=== PATIENT | male | born 1945 | race Caucasian/White ===

== ENCOUNTER 2022-09-20 13:33 | Outpatient (CLI) | payer MEDICARE ==
[2022-09-20 14:37] LABS: Hemoglobin 12.9 g/dL (13.5-17.5); Mean Corpuscular HGB CONC 32.6 g/dL (32.0-36.0); Mean Platelet Volume 11.3 fl (7.4-10.4); Platelet Count 141 10x3/uL (150-450); RBC Distribution Width 13.3 % (11.5-14.5); Red Blood Cell (RBC) Count 4.45 10x6/uL (4.32-5.72); White Blood Cell (WBC) Count 17.4 10x3/uL (3.5-10.5)
[2022-09-20 14:58] LABS: INR-International Normal Ratio 1.1; PTT 32.7 sec (22.0-33.0)
[2022-09-20 15:09] LABS: Anion Gap 14 mmol/L (10-20); BUN (Urea Nitrogen) 12 mg/dL (8.4-25.7); Calc. Creatinine Clearance 0 mL/min (70-130); Calcium 8.8 mg/dL (7.8-10.44); Carbon Dioxide 22 mmol/L (23-31); Chloride 108 mmol/L (98-107); Estimated GFR 90; Glucose 121 mg/dL (83-110); Potassium 4.4 mmol/L (3.5-5.1); Sodium 140 mmol/L (136-145)
== END 2022-09-20 13:34 | disposition home or self-care (01) ==
LOC: LABBT 13:33
PROVIDERS: ATTEND Specialist
DX: Z01.812 Encounter for preprocedural laboratory examination (principal); I48.0 Paroxysmal atrial fibrillation
CPT/HCPCS: 80048; 85027; 85610; 85730

== ENCOUNTER 2022-09-24 06:11 | Day surgery (SDC) | payer MEDICARE ==
[2022-09-20 11:13] VITALS: BMI 26.4
[2022-09-24] MEDS ORDERED: Protamine Sulfate 50 MG/5 ML VIAL ONE (06:53)
[2022-09-24] MEDS ORDERED: Isoproterenol 0.2 MG/1 ML AMP ONE (06:53)
[2022-09-24] MEDS ORDERED: Heparin 10,000 UNITS/ 10 ML VIAL ONE (06:53)
[2022-09-24] MEDS ORDERED: fentaNYL PF 100 MCG/2 ML SYRINGE ONE (07:03)
[2022-09-24 07:34] LABS: Hematocrit 38.4 % (42.0-52.0); Hemoglobin 12.3 g/dL (14.0-18.0); Manual Diff?? YES; Mean Corpuscular Hemoglobin 29.1 pg (27.0-31.0); Mean Corpuscular Volume 90.8 fl (78.0-98.0); Mean Platelet Volume 10.5 fL (7.4-10.4); Platelet Count 133 10x3/uL (130-400); RBC Distribution Width 13.7 % (11.5-14.5); Red Blood Cell (RBC) Count 4.23 mill/uL (4.70-6.10); White Blood Cell (WBC) Count 17.6 10x3/uL (4.8-10.8)
[2022-09-24 07:41] LABS: Delete Auto Diff?? YES
[2022-09-24 08:35] LABS: Band 2 % (5-11); Eosinophils 3 % (0-10); Lymphocytes 72 % (21-51); Monocytes 6 % (0-10); Neutrophil 17 % (42-75)
[2022-09-24 08:37] LABS: Polychromasia SLIGHT = 2-3 cells (100X) (0-2/hpf); Smudge Cells SLIGHT
[2022-09-24 08:44] LABS: Reflex for Review?? YES
[2022-09-24] MEDS ORDERED: PROPOFOL 200 MG/20 ML VIAL ONE (08:51)
[2022-09-24] MEDS ORDERED: Rocuronium Bromide 10 MG/ML (10ML VIAL) ONE (08:51)
[2022-09-24] MEDS ORDERED: Ondansetron PF 4 MG/2 ML Vial ONE (08:51)
[2022-09-24] MEDS ORDERED: SUGAMMADEX SODIUM 200 MG/2 ML VIAL ONE (09:51)
[2022-09-24] MEDS ORDERED: fentaNYL 50 mcg/mL 1 mL Vial ONE (11:11)
== END 2022-09-24 13:14 | disposition home or self-care (01) ==
LOC: SDC 06:11
PROVIDERS: ATTEND Specialist
PROC: 055 Upper Veins, Destruction (ICD-10-PCS; principal; 2022-09-24)
DX: I48.4 Atypical atrial flutter (principal); J45.909 Unspecified asthma, uncomplicated; I48.0 Paroxysmal atrial fibrillation; N40.0 Benign prostatic hyperplasia without lower urinary tract symptoms; Z87.891 Personal history of nicotine dependence; Z88.5 Allergy status to narcotic agent; Z79.899 Other long term (current) drug therapy
CPT/HCPCS: 85025; 85347 ×2; 93005; 93623; 93656; 93657; C1759; C1760; C1884; C1894 ×3; J3010; 36415; 85060; 88184; 88185; 88189; J0153; J1644; J2405; J2704; J2720

== ENCOUNTER 2022-10-24 08:45 | Outpatient (CLI) | payer MEDICARE | END 2022-10-24 08:46 | disposition home or self-care (01) | LOC: PET 08:45 | PROVIDERS: ATTEND Internal Medicine Hematology & Oncology | DX: C83.00 Small cell B-cell lymphoma, unspecified site (principal); J90 Pleural effusion, not elsewhere classified | CPT/HCPCS: 78815; A9552 ==